=== PATIENT | male | born 1955 | race Caucasian/White ===

== ENCOUNTER 2017-10-17 05:55 | Day surgery (SDC) | payer OTHER, BC ==
[2017-09-19 13:24] VITALS: BMI 31.0
--- NOTE | 2017-09-19 13:49 | PAT Medication Instructions ---
Service Date Sep 19, 2017. Current Home Medication List Acetaminophen (Tylenol), 1,000 MG PO PRN Atorvastatin (Lipitor), 10 MG PO QAM Cholecalciferol (Vitamin D), 2,000 PO QAM Duloxetine HCl (Duloxetine HCl), 1 CAP PO QAM Levothyroxine Sodium (Synthroid), 25 MCG PO QAM Meloxicam (Mobic), 15 MG PO QAM Omeprazole (Prilosec), 20 MG PO QAM Oxycodone Ir (Roxicodone Ir), 5-10 MG PO Q4H PRN for Severe Pain Tamsulosin HCl (Tamsulosin HCl), 0.4 MG PO QPM Medication Instructions For Your Scheduled Surgery - Check with surgeon for instructions: Meloxicam (Mobic), 15 MG PO QAM - Hold the following medications the morning of surgery: Cholecalciferol (Vitamin D), 2,000 PO QAM - Take the following medications the morning of surgery with a sip of water: Acetaminophen (Tylenol), 1,000 MG PO PRN (okay to take up to 4 hours prior to surgery if needed) Atorvastatin (Lipitor), 10 MG PO QAM Duloxetine HCl (Duloxetine HCl), 1 CAP PO QAM Levothyroxine Sodium (Synthroid), 25 MCG PO QAM Omeprazole (Prilosec), 20 MG PO QAM Oxycodone Ir (Roxicodone Ir), 5-10 MG PO Q4H PRN for Severe Pain (okay to take up to 4 hours prior to surgery if needed) If you have any questions please call us at [phone] or [phone] or [phone]
[2017-09-19 14:15] VITALS: BMI 31.0
[2017-09-19 14:25] LABS: BASO % 0.5 %; BASO ABS # 0.05 K/uL (0-0.2); EOS % 1.3 %; EOS ABS # 0.12 K/uL (0-0.5); HEMATOCRIT 47.4 % (42-52); HEMOGLOBIN 16.7 g/dL (14.0-18.0); IG# 0.02 K/uL (0.00-0.02); LYMPH % 27.2 %; LYMPH ABS # 2.53 K/uL (1.2-3.4); MEAN CELL VOLUME 91.9 fL (80-100); MEAN CORPUSCULAR HEMOGLOBIN 32.4 pg (25-34); MEAN CORPUSCULAR HGB CONC 35.2 g/dl (32-36); MEAN PLATELET VOLUME 9.6 fL (7.4-10.4); MONO % 9.7 %; NEUT % 61.1 %; NEUT ABS # 5.67 K/uL (1.4-6.5); PLATELET COUNT 261 K/uL (130-400); RED CELL DISTRIBUTION WIDTH CV 13.3 % (11.5-14.5); RED CELL DISTRIBUTION WIDTH SD 44.8 fL (36.4-46.3); WHITE BLOOD COUNT 9.29 K/uL (4.8-10.8)
--- NOTE | 2017-09-19 14:28 | DIAGNOSTIC IMAGING REPORT ---
TWO VIEW CHEST CLINICAL HISTORY: Preoperative examination. FINDINGS: PA and lateral chest radiographs are compared to study dated 07/28/2016. The heart is mildly enlarged and there is atherosclerotic calcification of the thoracic aorta. The pulmonary vasculature is noncongested. The lungs and pleural spaces are clear. There is no pneumothorax. The bony thorax appears intact. Cholecystectomy clips are seen in the right upper quadrant. IMPRESSION: Mild cardiac enlargement with no active disease in the chest. Electronically signed by: Hitesh Blair M.D. 09/19/2017 2:27 PM Dictated Date/Time: 09/19/2017 2:26 PM
[2017-09-19 14:38] LABS: CALCIUM 9.2 mg/dl (8.5-10.1); CREATININE 0.92 mg/dl (0.60-1.40); POTASSIUM 4.1 mmol/L (3.5-5.1)
[~2017-10-17] VITALS: Ht 188 cm; Wt 110.5 kg
[~2017-10-17 05:55] MED LIST: ACET-1256 PO; ATOR10TA82 PO; CHOL100010 PO; DULO1CAP39 PO; FLM4 PO; LEVO25TA PO; MELO7.5T5 PO; OXYC1TAB3 PO; PRLSR20 PO
[2017-10-17] MEDS ORDERED: LACTATED RINGER'S 1000ML 1,000 ML IV SCH (06:00)
[2017-10-17] MEDS ORDERED: CEFAZOLIN 2000MG IV PUSH 15 ML IV SCH (06:00)
[2017-10-17 06:14] VITALS: BP 122/86; PULSE 64; TEMP 36.5; O2SAT 95; Ht 188 cm; Wt 110.5 kg
[2017-10-17] MEDS ORDERED: MIDAZOLAM HCL 1 MG/ML 2ML VIAL ONE (06:37)
[2017-10-17] MEDS ORDERED: FENTANYL CITRATE INJ 50 MCG/1 ML 2 ML VIAL ONE ×2 (06:37→08:33)
[2017-10-17] MEDS ORDERED: BUPIVACAINE/EPINEPHRINE 0.5% MPF 1:200,000 30 ML VIAL ONE (06:50)
[2017-10-17] MEDS ORDERED: BACITRACIN 50000 UNIT VIAL ONE (06:50)
--- NOTE | 2017-10-17 07:36 | History & Physical Bridge Note ---
H&P Re-Evaluation Bridge Note: I have examined the patient, reviewed the History & Physical and in the interval since the performance of the History & Physical I have noted the following changes of clinical significance: No changes noted
--- NOTE | 2017-10-17 07:37 | History and Physical ---
History & Physical Date Oct 17, 2017. Chief Complaint Chronic back and leg pain History of Present Illness The patient is a 62 year old male with complaints of chronic back and leg pain Past Medical/Surgical History Medical Problems: (1) Lumbar stenosis with neurogenic claudication Additional History Hepatic Disease: No Endocrine Disorder: No Kidney Disease: No Hypertension: No Heart Disease: No Bleeding Tendencies: No Infectious Diseases: No Allergies Coded Allergies: Valacyclovir (Verified Allergy, Unknown, RASH, 10/17/17) Home Medications Scheduled Acetaminophen (Tylenol), 1,000 MG PO PRN Atorvastatin (Lipitor), 10 MG PO QAM Cholecalciferol (Vitamin D), 2,000 INTERUNIT PO QAM Duloxetine HCl (Duloxetine HCl), 1 CAP PO QAM Levothyroxine Sodium (Synthroid), 25 MCG PO QAM Meloxicam (Mobic), 15 MG PO QAM Omeprazole (Prilosec), 20 MG PO QAM Tamsulosin HCl (Tamsulosin HCl), 0.4 MG PO QPM Scheduled PRN Oxycodone Ir (Roxicodone Ir), 5-10 MG PO Q4H PRN for Severe Pain Physical Examination Skin: warm/dry, no rash Eyes: normal inspection, EOMI, sclerae normal ENT: normal ENT inspection, pharynx normal Head: normocephalic, atraumatic Neck: supple, no adenopathy, trachea midline Respiratory/Chest: lungs clear, normal breath sounds, no respiratory distress Cardiovascular: regular rate, rhythm, no edema, no murmur Abdomen / GI: normal bowel sounds, non tender Back: normal inspection Extremities: normal inspection, normal range of motion Neurologic/Psych: no motor/sensory deficits, alert, normal reflexes, oriented x 3 Diagnosis Chronic back and leg pain Plan of Treatment Spinal cord stimulator trial is
[2017-10-17] MEDS ORDERED: ATROPINE SULFATE 0.1 MG/ML 5ML SYR IV PRN (07:45)
[2017-10-17] MEDS ORDERED: FENTANYL CITRATE INJ 50 MCG/1 ML 2 ML VIAL IV PRN (07:45)
[2017-10-17] MEDS ORDERED: ONDANSETRON INJ 2 MG/ML 2 ML VIAL IV PRN (07:45)
[2017-10-17] MEDS ORDERED: EpHEDrine SULFATE INJ 50 MG/ML AMP IV PRN (07:45)
[2017-10-17] MEDS ORDERED: GLYCOPYRROLATE INJ 0.2 MG/ML VIAL ONE (08:19)
[2017-10-17] MEDS ORDERED: DEXAMETHASONE SOD INJ 4 MG/ML VIAL ONE (08:19)
[2017-10-17] MEDS ORDERED: ESMOLOL HCL 10 MG/ML 10 ML VIAL ONE (08:19)
[2017-10-17] MEDS ORDERED: LIDOCAINE HCL 2% 2 ML VIAL (20MG/ML) ONE (08:19)
[2017-10-17] MEDS ORDERED: ONDANSETRON INJ 2 MG/ML 2 ML VIAL ONE (08:19)
[2017-10-17] MEDS ORDERED: NEOSTIGMINE METHYLSULFATE 1 MG/ML 10ML VIAL ONE (08:19)
[2017-10-17] MEDS ORDERED: EpHEDrine SULFATE 50MG/5ML SYR ONE (08:19)
[2017-10-17] MEDS ORDERED: PROPOFOL IV EMULSION 10 MG/ML 20 ML VIAL IV ONE (08:19)
[2017-10-17] MEDS ORDERED: FLOSEAL HEMOSTATIC MATRIX 5ML TOP ONE (08:31)
[2017-10-17] MEDS ORDERED: KETOROLAC TROMETHAMINE 30 MG/ML VIAL ONE (08:33)
--- NOTE | 2017-10-17 08:35 | [facility] Operative Report ---
Operative Report Operative Date Oct 17, 2017. Pre-Operative Diagnosis Chronic Back and Leg Pain Post-Operative Diagnosis Chronic Back and Leg Pain Procedure(s) Performed #1 T10 laminotomy. #2 implantation of spinal cord stimulator 16 point lead with attachment of temporary leads. Surgeon Dr. Cox Digital Project Manager Surgeon(s) SANTINO Saucedo Estimated Blood Loss 5 ml Findings Normal Specimens none per surgeon Anesthesia Type General Description of Procedure Patient was met with preoperatively case discussed all questions addressed. After informed consent obtained patient was taken to the operative suite underwent intubation and placed in a prone position on the Michael table the Juan C frame. All bony promises were well-padded eyes inspected to ensure no external pressure placed upon them. This point the thoracal lumbar spine was prepped and draped in the normal sterile fashion. With the assistance of fluoroscopy identified the T10-T11 interspace. A midline incision was created overlying incision. Sharp dissection with the assistance of Bovie cautery was performed onto an exposing the interlaminar space. I verified my position with fluoroscopy. Then performed a midline laminotomy large enough to pass a 16 point paddle lead. This was placed verified with fluoroscopy. Leads were then sewn into position. I attached the temporary leads. By way of electrocautery were passed to the left side of the patient. Device was tested for efficacy. After this complete the leads were buried and this incisions closed. Sterile dressing was placed. Patient awakened taken PACU in stable condition. Please note Lisa Samaniego was present throughout the entire procedure involved in patient positioning complex portions of the surgery and final skin closure. I attest to the content of the Intraoperative Record and any orders documented therein. Any exceptions are noted below.
[2017-10-17] MEDS ORDERED: OXYC1TAB3 PO (08:36)
--- NOTE | 2017-10-17 08:37 | Discharge Instructions ---
Discharge Instructions Date of Service Oct 17, 2017. Admission Reason for Admission: Lumbar Postlaminectomy Syndrome Discharge Discharge Diagnosis / Problem: chronic leg pain Discharge Goals Goal(s): Decrease discomfort Activity Recommendations Activity Limitations: per Instructions/Follow-up section . Instructions / Follow-Up Instructions / Follow-Up ACTIVITY RECOMMENDATIONS: SELF CARE INSTRUCTIONS AFTER A LAMINECTOMY 1. No prolonged sitting (less than 30 minutes for the first 3 weeks after surgery). 2. No bending, lifting more than 5 pounds, or twisting (roll like a log when turning in bed). 3. You may shower 3 days after surgery if no drainage from wound. Thoroughly dry wound. Do not soak in the tub. 4. Please walk as much as you can for exercise. Gradually increase the distance that you walk as your endurance increases. 5. You may drive in 7-10 days if you are comfortable and no longer requiring pain medications. SPECIAL CARE INSTRUCTIONS: VERY IMPORTANT TO READ AND REVIEW A. Your surgical incision has been closed with a cosmetic suture under the skin that will dissolve in about 6 weeks. In 14 days, you can use a pair of clean scissors and cut the suture that is left outside of the skin at the ends of your incision. B. Complications are uncommon, but please contact us if you have any signs or symptoms of: 1. wound infection (fever higher than 102.5 degrees F, redness, separation of wound, drainage, or increasing pain from the incision) 2. blood clots in legs (pain, swelling, redness and warmth in legs) 3. urinary tract infection (fever higher than 102.5 degrees, burning upon urination or increased frequency of urination) 4. nerve problems (inability to walk on your toes or heels, numbness, loss of bowel or bladder control) 5. any other symptoms that concern you. C. Please call the office at if you have any concerns or questions about your operation or recovery. MANAGING PAIN AFTER SPINAL SURGERY 1. Narcotic medication is intended for short-term use and will be provided for surgical pain. Surgical pain usually lasts for a period of 4-6 weeks. Narcotic medication includes Percocet, Vicodin, Darvocet, Tylenol #3 or Lortab. 2. Longer-term pain is more appropriately treated with non-narcotic medication such as Tylenol ES. 3. Muscle spasm is not appropriately treated with narcotics. Muscle relaxers such as Soma, Flexeril or Skelaxin can be used along with Tylenol ES. 4. Remember that we all live with some "aches and pains". This is not unusual or uncommon after an injury or as we get older. 5. We will provide appropriate medication within the normal guidelines of their prescribed use. We will also be very cautious and aware of potential abuse and extended duration of patients' medication needs. 6. Please allow 2-3 days to process refills. Prescriptions will not be mailed but must be picked up at the office. FOLLOW UP VISIT: Keep your scheduled follow-up appointment. Any questions, please call the office at . Current Hospital Diet Patient's current hospital diet: Discharge Diet Recommended Diet: Regular Diet Procedures Procedures Performed: #1 T10 laminotomy. #2 implantation of spinal cord stimulator 16 point lead with attachment of temporary leads. Pending Studies Studies pending at discharge: no Medical Emergencies . Who to Call and When: Medical Emergencies: If at any time you feel your situation is an emergency, please call 911 immediately. . Non-Emergent Contact Non-Emergency issues call your: Primary Care Provider . "Provider Documentation" section prepared by Sudeep Cox. . VTE Core Measure Inpt VTE Proph given/why not?: Magdalena White, SCD's
--- NOTE | 2017-10-17 08:58 | DIAGNOSTIC IMAGING REPORT ---
SPINE ONE VIEW, ANY LEVEL CLINICAL HISTORY: SPINAL CORD STIM TRIAL Fluoroscopy time: 5 seconds. FINDINGS: Single AP fluoroscopic image demonstrates surgical retractors. Electrodes project over the canal. A laminectomy is noted. Exact localization is not possible given partial visualization of the lumbar spine however the electrodes may terminate at the upper T9 level. IMPRESSION: Single fluoroscopic image demonstrating placement of intracanalicular electrodes. Electronically signed by: Chinedu Noe M.D. 10/17/2017 8:56 AM Dictated Date/Time: 10/17/2017 8:55 AM
--- NOTE | 2017-10-17 09:38 | Anesthesiology Progress Note ---
Anesthesia Post Op Note Date & Time Oct 17, 2017 at 09:38 Vital Signs Pain Intensity: 0 Vital Signs Past 12 Hours Date Time Temp Pulse Resp B/P (MAP) Pulse Ox O2 Delivery O2 Flow Rate FiO2 10/17/17 09:17 83 12 10/17/17 09:17 85 12 94 10/17/17 09:16 128/66 10/17/17 09:16 36.3 85 18 128/66 (74) 95 Room Air 10/17/17 09:12 92 17 83 10/17/17 09:12 92 17 10/17/17 09:11 115/71 10/17/17 09:07 90 12 10/17/17 09:07 91 12 95 10/17/17 09:06 107/63 10/17/17 09:02 90 18 10/17/17 09:02 90 18 94 10/17/17 09:01 112/65 10/17/17 09:00 92 12 96 10/17/17 09:00 96 12 10/17/17 09:00 92 12 96 10/17/17 09:00 96 12 10/17/17 08:56 126/81 10/17/17 08:56 126/81 10/17/17 08:55 90 23 10/17/17 08:55 89 23 100 10/17/17 08:55 90 23 10/17/17 08:55 89 23 100 10/17/17 08:51 120/72 10/17/17 08:51 120/72 10/17/17 08:50 89 23 10/17/17 08:50 89 23 10/17/17 08:50 89 23 100 10/17/17 08:50 89 23 100 10/17/17 08:46 123/69 10/17/17 08:46 123/69 10/17/17 08:45 88 16 10/17/17 08:45 90 16 97 10/17/17 08:45 90 16 97 10/17/17 08:45 88 16 10/17/17 08:45 36.4 87 16 123/69 (89) 99 Oxymask 10 10/17/17 06:14 36.5 64 18 122/86 (98) 95 Room Air Notes Mental Status: alert / awake / arousable, participated in evaluation Pt Amnestic to Procedure: Yes Nausea / Vomiting: adequately controlled Pain: adequately controlled Airway Patency, RR, SpO2: stable & adequate BP & HR: stable & adequate Hydration State: stable & adequate Anesthetic Complications: no major complications apparent
[2017-10-17 10:30] VITALS: BP 112/61; PULSE 86; TEMP 36.3; O2SAT 97
[2017-10-17] MEDS ORDERED: ROCURONIUM BROMIDE 10 MG/ML 5 ML VIAL IV ONE (10:30)
[2017-10-19] MEDS ORDERED: OXYC1TAB3 PO (10:14)
== END 2017-10-17 11:05 | disposition home or self-care (01) ==
LOC: C.ACU 05:55
PROVIDERS: ATTEND Orthopaedic Surgery Orthopaedic Surgery of the Spine
DX: M48.062 Spinal stenosis, lumbar region with neurogenic claudication (principal); E78.00 Pure hypercholesterolemia, unspecified; F41.9 Anxiety disorder, unspecified; E03.9 Hypothyroidism, unspecified; M19.90 Unspecified osteoarthritis, unspecified site; K21.9 Gastro-esophageal reflux disease without esophagitis; Z90.49 Acquired absence of other specified parts of digestive tract; G47.33 Obstructive sleep apnea (adult) (pediatric); I10 Essential (primary) hypertension; E78.5 Hyperlipidemia, unspecified; G62.9 Polyneuropathy, unspecified; N40.0 Benign prostatic hyperplasia without lower urinary tract symptoms; E66.9 Obesity, unspecified

== ENCOUNTER → 2017-10-24 | Day surgery (SDC) | payer OTHER, BC ==
[2017-10-19 10:14] VITALS: BMI 31.0
[~2017-10-24] VITALS: Ht 188 cm; Wt 110.5 kg
[~2017-10-24] MED LIST changes: +ACETAMINOPHEN 325 MG TAB PO PRN; +ATROPINE SULFATE 0.1 MG/ML 5ML SYR IV PRN; +BACITRACIN 50000 UNIT VIAL ONE; +BUPIVACAINE/EPINEPHRINE 0.5% MPF 1:200,000 30 ML VIAL ONE; +CEFAZOLIN 2000MG IV PUSH 15 ML IV SCH; +DEXAMETHASONE SOD INJ 4 MG/ML VIAL ONE; +EpHEDrine SULFATE INJ 50 MG/ML AMP IV PRN; +EpHEDrine SULFATE INJ 50 MG/ML AMP ONE; +FENTANYL CITRATE INJ 50 MCG/1 ML 2 ML VIAL IV PRN; +FENTANYL CITRATE INJ 50 MCG/1 ML 2 ML VIAL ONE; +FLOSEAL HEMOSTATIC MATRIX 5ML TOP ONE; +GLYCOPYRROLATE INJ 0.2 MG/ML VIAL ONE; +HYDROmorphone INJ 1 MG/ML SYR IV PRN; +HYDROmorphone INJ 2 MG/ML SYR/VIAL IV PRN; +KETOROLAC TROMETHAMINE 30 MG/ML VIAL IV. PRN; +LACTATED RINGER'S 1000ML 1,000 ML IV SCH; +LIDOCAINE HCL 2% 2 ML VIAL (20MG/ML) ONE; +MIDAZOLAM HCL 1 MG/ML 2ML VIAL ONE; +NEOSTIGMINE METHYLSULFATE 1 MG/ML 10ML VIAL ONE; +ONDANSETRON INJ 2 MG/ML 2 ML VIAL IV PRN; +ONDANSETRON INJ 2 MG/ML 2 ML VIAL ONE; +OXYCODONE HCL IR 5 MG TAB (IMMEDIATE RELEASE) ONE; +OXYCODONE HCL IR 5 MG TAB (IMMEDIATE RELEASE) PO PRN; +PHENYLEPHRINE HCL INJ 10 MG/ML VIAL ONE; +PROMETHAZINE HCL INJ 6.25 MG in SODIUM CHLORIDE 0.9% 50ML 50 ML IV PRN; +PROPOFOL IV EMULSION 10 MG/ML 20 ML VIAL IV ONE; +ROCURONIUM BROMIDE 10 MG/ML 5 ML VIAL IV ONE; +SUCCINYLCHOLINE CHLORIDE 20 MG/ML 10 ML VIAL IV ONE
[2017-10-24 06:14] VITALS: BP 133/75; PULSE 85; TEMP 36.4; O2SAT 94; Ht 188 cm; Wt 110.5 kg
--- NOTE | 2017-10-24 07:25 | History and Physical ---
History & Physical Date Oct 24, 2017. Chief Complaint Chronic back and leg pain History of Present Illness The patient is a 62 year old male with complaints of chronic back and leg pain Past Medical/Surgical History Medical Problems: (1) Lumbar stenosis with neurogenic claudication Additional History Hepatic Disease: No Endocrine Disorder: No Kidney Disease: No Hypertension: No Heart Disease: No Bleeding Tendencies: No Infectious Diseases: No Allergies Coded Allergies: Valacyclovir (Verified Allergy, Unknown, RASH, 10/24/17) Home Medications Scheduled Acetaminophen (Tylenol), 1,000 MG PO PRN Atorvastatin (Lipitor), 10 MG PO QAM Cholecalciferol (Vitamin D), 2,000 INTERUNIT PO QAM Duloxetine HCl (Duloxetine HCl), 1 CAP PO QAM Levothyroxine Sodium (Synthroid), 25 MCG PO QAM Meloxicam (Mobic), 15 MG PO QAM Omeprazole (Prilosec), 20 MG PO QAM Tamsulosin HCl (Tamsulosin HCl), 0.4 MG PO QPM Scheduled PRN Oxycodone Ir (Roxicodone Ir), 5-10 MG PO Q4H PRN for Severe Pain Physical Examination Skin: warm/dry, no rash Eyes: normal inspection, EOMI, sclerae normal ENT: normal ENT inspection, pharynx normal Head: normocephalic, atraumatic Neck: supple, no adenopathy, trachea midline Respiratory/Chest: lungs clear, normal breath sounds, no respiratory distress Cardiovascular: regular rate, rhythm, no edema, no murmur Abdomen / GI: normal bowel sounds, non tender Back: normal inspection Extremities: normal inspection, normal range of motion Neurologic/Psych: no motor/sensory deficits, alert, normal reflexes, oriented x 3 Diagnosis Chronic back and leg pain Plan of Treatment Spinal cord stimulator placement
--- NOTE | 2017-10-24 08:17 | [facility] Operative Report ---
Operative Report Operative Date Oct 24, 2017. Pre-Operative Diagnosis Chronic back and leg pain Post-Operative Diagnosis Chronic back and leg pain Procedure(s) Performed #1 removal of temporary spinal cord stimulator leads. #2 implantation of spinal cord wilderness guide battery. Surgeon Dr. Cox Consulting Solution Manager Surgeon(s) Lisa Samaniego Estimated Blood Loss 10 mL Findings Findings consistent with diagnosis Description of Procedure Patient was met with preoperatively case discussed all questions addressed. After informed consent obtained patient was taken to the operative suite underwent intubation and placed in a prone position on the Michael table on top of the Juan C frame. All bony prominences were well-padded eyes inspected to ensure no external pressure placed upon them. This point the thoracal lumbar spine was prepped and draped in the normal sterile fashion. Sharp dissection was used to expose the laminotomy site T10 the wires were removed. The temporary leads detached and removed. I then created a pocket over the right flank large enough to contain the battery. A trocar was used to run the leads to the pocket. They were subsequently attached the battery and tested for efficacy. Once this was established the battery was placed within the pocket. All incisions were closed with subcutaneous Vicryl and 4-0 Monocryl for final skin closure. Steri-Strips and sterile dressing was placed. Patient awakened taken to PACU in stable condition. I attest to the content of the Intraoperative Record and any orders documented therein. Any exceptions are noted below.
--- NOTE | 2017-10-24 08:19 | Discharge Instructions ---
Discharge Instructions Date of Service Oct 24, 2017. Admission Reason for Admission: Lumbar Post-Laminectomy Syndrome Discharge Discharge Diagnosis / Problem: chronic back and leg pain Discharge Goals Goal(s): Improve function Activity Recommendations Activity Limitations: per Instructions/Follow-up section . Instructions / Follow-Up Instructions / Follow-Up ACTIVITY RECOMMENDATIONS: SELF CARE INSTRUCTIONS AFTER A LAMINECTOMY 1. No prolonged sitting (less than 30 minutes for the first 3 weeks after surgery). 2. No bending, lifting more than 5 pounds, or twisting (roll like a log when turning in bed). 3. You may shower 3 days after surgery if no drainage from wound. Thoroughly dry wound. Do not soak in the tub. 4. Please walk as much as you can for exercise. Gradually increase the distance that you walk as your endurance increases. 5. You may drive in 7-10 days if you are comfortable and no longer requiring pain medications. SPECIAL CARE INSTRUCTIONS: VERY IMPORTANT TO READ AND REVIEW A. Your surgical incision has been closed with a cosmetic suture under the skin that will dissolve in about 6 weeks. In 14 days, you can use a pair of clean scissors and cut the suture that is left outside of the skin at the ends of your incision. B. Complications are uncommon, but please contact us if you have any signs or symptoms of: 1. wound infection (fever higher than 102.5 degrees F, redness, separation of wound, drainage, or increasing pain from the incision) 2. blood clots in legs (pain, swelling, redness and warmth in legs) 3. urinary tract infection (fever higher than 102.5 degrees, burning upon urination or increased frequency of urination) 4. nerve problems (inability to walk on your toes or heels, numbness, loss of bowel or bladder control) 5. any other symptoms that concern you. C. Please call the office at if you have any concerns or questions about your operation or recovery. MANAGING PAIN AFTER SPINAL SURGERY 1. Narcotic medication is intended for short-term use and will be provided for surgical pain. Surgical pain usually lasts for a period of 4-6 weeks. Narcotic medication includes Percocet, Vicodin, Darvocet, Tylenol #3 or Lortab. 2. Longer-term pain is more appropriately treated with non-narcotic medication such as Tylenol ES. 3. Muscle spasm is not appropriately treated with narcotics. Muscle relaxers such as Soma, Flexeril or Skelaxin can be used along with Tylenol ES. 4. Remember that we all live with some "aches and pains". This is not unusual or uncommon after an injury or as we get older. 5. We will provide appropriate medication within the normal guidelines of their prescribed use. We will also be very cautious and aware of potential abuse and extended duration of patients' medication needs. 6. Please allow 2-3 days to process refills. Prescriptions will not be mailed but must be picked up at the office. FOLLOW UP VISIT: Keep your scheduled follow-up appointment. Any questions, please call the office at . Current Hospital Diet Patient's current hospital diet: Discharge Diet Recommended Diet: Regular Diet Procedures Procedures Performed: #1 removal of temporary spinal cord stimulator leads. #2 implantation of spinal cord food and beverage controller battery. Pending Studies Studies pending at discharge: no Medical Emergencies . Who to Call and When: Medical Emergencies: If at any time you feel your situation is an emergency, please call 911 immediately. . Non-Emergent Contact Non-Emergency issues call your: Primary Care Provider . "Provider Documentation" section prepared by Sudeep Cox. . VTE Core Measure Inpt VTE Proph given/why not?: Magdalena White, SCD's
--- NOTE | 2017-10-24 08:55 | Anesthesiology Progress Note ---
Anesthesia Post Op Note Date & Time Oct 24, 2017 at 08:55 Vital Signs Pain Intensity: 1 Vital Signs Past 12 Hours Date Time Temp Pulse Resp B/P (MAP) Pulse Ox O2 Delivery O2 Flow Rate FiO2 10/24/17 08:51 77 16 118/73 98 10/24/17 08:51 77 10/24/17 08:46 89 17 10/24/17 08:46 89 17 139/80 99 10/24/17 08:41 88 20 10/24/17 08:41 87 20 99 10/24/17 08:37 124/76 10/24/17 08:36 82 14 98 10/24/17 08:36 83 14 10/24/17 08:35 136/85 10/24/17 08:31 36.5 84 16 136/85 100 Oxymask 7 10/24/17 06:14 36.4 85 18 133/75 (94) 94 Notes Mental Status: alert / awake / arousable, participated in evaluation Pt Amnestic to Procedure: Yes Nausea / Vomiting: adequately controlled Pain: adequately controlled Airway Patency, RR, SpO2: stable & adequate BP & HR: stable & adequate Hydration State: stable & adequate Anesthetic Complications: no major complications apparent
[2017-10-24 09:20] VITALS: BP 130/71; PULSE 63; TEMP 36.5; O2SAT 96
== END | disposition home or self-care (01) ==
LOC: C.ACU 05:48
PROVIDERS: ATTEND Orthopaedic Surgery Orthopaedic Surgery of the Spine
DX: G89.29 Other chronic pain (principal); M54.9 Dorsalgia, unspecified; M79.606 Pain in leg, unspecified; G47.33 Obstructive sleep apnea (adult) (pediatric); E66.9 Obesity, unspecified; M19.90 Unspecified osteoarthritis, unspecified site; Z90.89 Acquired absence of other organs; Z98.890 Other specified postprocedural states; Z90.49 Acquired absence of other specified parts of digestive tract; Z79.899 Other long term (current) drug therapy; Z88.1 Allergy status to other antibiotic agents